=== PATIENT | male | born 1985 | race Caucasian/White ===

== ENCOUNTER 2022-09-26 19:22 | Inpatient (IN) | payer BC ==
--- OUTSIDE RECORDS SUMMARY | 2022-09-26 19:26 | XMS REPORT | Continuity of Care Document ---
:1985 Author Organization [facility] t Address [address] [place] [address] [place] [id number] Care Team Providers Name Role Phone Pcp, Patient Does Not Have A Primary Care Physician [id number] Connie Juarez MD Attending Clinician CONNIE JUAREZ Attending Clinician Unavailable Dimple Garces MD Attending Clinician Doctor Unassigned, [place] Attending Clinician Unavailable To Pereyra MD Attending Clinician Dimple Garces MD Admitting Clinician DIMPLE GARCES Admitting Clinician Unavailable Payers Payer Name Policy Type Policy Number Effective Date Expiration Date S ource Problems Condition Condition Condition Status Onset Resolution Last Treating Co mments Source Name Details Category Date Date Treatment Clinician Date No known No known Disease Unive rs active active ity of problems problems [facility] Allergies, Adverse Reactions, Alerts Allergy Allergy Status Severity Reaction(s) Onset Inactive Treating Comm ents Source Name Type Date Date Clinician NO KNOWN Drug Active Univers ALLERGIE Class ity of S [facility] Social History Social Habit Start Date Stop Date Quantity Comments Source Exposure to Not sure [facility] SARS-CoV-2 (event) [facility] Tobacco use and 2021-04-09 2021-04-09 Never used [facility] exposure 00:00:00 00:00:00 [facility] Sex Ass[birth year] At [birth year] [facility] 00:00:00 00:00:00 [facility] [place] Smoking Status Start Date Stop Date Source Never smoker [facility] Medications Ordered Filled Start Stop Current Ordering Indication Dosage Frequency Signature Comments Components Source Medication Medication Date Date Medication? Clinician (SIG) Name Name No known 2020-07 No Univers medications 0-22 ity of 14:01: [address] No known 2020-07 No Univers medications 0-22 ity of 14:01: [address] Vital Signs Vital Name Observation Time Observation Value Comments Source Body height 2021-05-16 14:25:00 172.7 cm [facility] Body weight 2021-05-16 14:25:00 88.451 kg [facility] BMI 2021-05-16 14:25:00 29.65 kg/m2 [facility] Procedures This patient has no known procedures. Encounters Start End Encounter Admission Attending Care Care Encounter Source Date/Time Date/Time Type Type Clinicians Facility Department ID 2021-05-16 2021-05-16 [facility] [id number] Univers 09:22:40 09:38:36 Visit Connie [place] [id number] it y of [place] [id number] James as Sarbjit?Blea [phone] Ar tami [address] Office [facility] 2021-05-16 2021-05-16 Outpatient [facility] [id number] Univers 09:15:00 09:15:00 CONNIE shahida [facility] 2021-05-16 2021-05-16 [facility] [id number] Univers 00:00:00 00:00:00 (Out) Connie [facility] [id number] it y of [place] [id number] James as Sarbjit?Blea [phone] Ar tami [address] Office Building 2021-04-28 2021-04-28 [facility] [id number] Univers 13:50:40 14:28:16 Visit Connie De La Rosa [facility] [id number] it y of [place] [id number] James as Sarbjit?Blea [phone] [address] Office Building 2021-04-28 2021-04-28 [facility] [id number] Univers 13:45:00 13:45:00 CONNIE doty [facility] 2021-04-25 2021-04-25 Letter VANESSA Garces [id number] Univers 00:00:00 00:00:00 (Out) Dimple Velez [facility] [id number] ity of [facility] [id number] [phone] [facility] [address] 2021-04-21 2021-04-21 [facility] [id number] Univers 13:54:47 15:38:42 Visit Connie De La Rosa [facility] [id number] it y of [place] [id number] James as Sarbjit?Blea [phone] Ar nitasaarh [address] Office [facility] 2021-04-21 2021-04-21 [facility] [id number] Univers 13:45:00 13:45:00 CONNIELASHA doty [facility] 2021-04-15 2021-04-15 Orders Doctor LEIA [id number] Univers 00:00:00 00:00:00 Only Unassigned, [place] [id number] ity of [place] [facility] [id number] James as [phone] [facility] [address] 2021-04-09 2021-04-09 [facility] [id number] Univers 13:10:05 13:33:24 Visit Connie De La Rosa [facility] [id number] it y of [place] [id number] James as Sarbjit?Blea [phone] Ar tami edge [address] [place] [address] Office [facility] 2021-04-09 2021-04-09 Outpatient R [facility] [id number] Univers 13:15:00 13:15:00 CONNIE shahida [facility] 2021-04-05 2021-04-05 Emergency To Pereyra [facility] [id number] Univers 03:18:00 06:59:00 Dimple Garces [facility] [id number] ity of [place] [id number] [facility] [phone] [address] ([facility]) 2021-04-05 2021-04-05 Emergency To Pereyra [facility] [id number] Univers 03:18:00 06:59:00 [facility] [id number] ity of [place] [id number] [facility] [phone] [address] ([facility]) 2021-04-05 2021-04-05 Emergency X [facility] ERT [id number] Univers 03:18:00 03:18:00 ity of [facility] Results This patient has no known results.
[2022-09-26] MEDS ORDERED: ONDANSETRON 4 MG/2 ML VIAL IV PRN (19:32)
[2022-09-26 20:21] LABS: SARS-CoV-2 Antigen Rapid Res Negative (Negative)
--- NOTE | 2022-09-26 21:21 | P.HP ---
Certification for Inpatient Patient admitted to: Inpatient With expected LOS: >2 Midnights Patient will require the following post-hospital care: None Practitioner: I am a practitioner with admitting privileges, knowledge of patient current condition, hospital course, and medical plan of care. Services: Services provided to patient in accordance with Admission requirements found in Title 42 Section 412.3 of the Code of Federal Regulations Patient History Date of Service: 09/26/22 Reason for admission: Dental infection r/o osteomyelitis History of Present Illness: 37-year-old male with history of wisdom tooth extraction performed on 08/31/2022 with persistent pain in the right lower jaw and follow-up debridement on 09/23/2022 who has had pain and numbness of the right lower jaw for the past few days was referred here to the hospital for direct admission by his oromaxillofacial surgeon for admission and IV antibiotics/ID evaluation for possible osteomyelitis. Patient has been on 3 courses of antibiotics since his wisdom teeth were extracted, most recently clindamycin for the last 4 days. Allergies morphine Allergy (Intermediate, Verified 10/19/13 02:51) Anaphylaxis Home Medications: Azithromycin Tab [Zithromax*] 500 mg PO DAILY #5 tab 10/19/13 predniSONE [Deltasone] 10 mg PO DAILY #14 tab 10/19/13 - Past Medical/Surgical History -: none -: appendectomy Psychosocial/ Personal History: Patient lives at home with his family - Social History Smoking Status: Never smoker Alcohol use: Yes CD- Drugs: No Caffeine use: Yes Place of Residence: Home Review of Systems 10-point ROS is otherwise unremarkable ENT: Other (Dental pain, numbness right jaw) Physical Examination - Physical Exam General: Alert, In no apparent distress, Oriented x3 HEENT: Atraumatic, PERRLA, Mucous membr. moist/pink, Other (Swelling present of the right jaw), EOMI, Sclerae nonicteric Neck: Supple, 2+ carotid pulse no bruit, No LAD, Without JVD or thyroid abnormality Respiratory: Clear to auscultation bilaterally, Normal air movement Cardiovascular: Regular rate/rhythm, Normal S1 S2 Capillary refill: <2 Seconds Gastrointestinal: Normal bowel sounds, No tenderness Musculoskeletal: No tenderness Integumentary: No rashes Neurological: Normal speech, Normal strength at 5/5 x4 extr, Normal tone, Normal affect Assessment and Plan - Plan Assessment: Dental infection status post wisdom tooth extraction rule out osteomyelitis Plan: Dental infection status post wisdom tooth extraction rule out osteomyelitis Blood cultures obtained, continue antibioticsUnasyn. Infectious disease consult in place as well as patient's surgeon Dr. Quinn, pain medications ordered. Monitor CBC. DVT PPX: Lovenox Code status: Full Discharge Plan: Home Plan to discharge in: 72 Hours - Advance Directives Does patient have a Living Will: No Does patient have a Durable POA for Healthcare: No - Code Status/Comfort Care Code Status Assessed: Yes (Full code) Critical Care: No Time Spent Managing Pts Care (In Minutes): 50
[2022-09-26 21:36] LABS: Absolute Lymphocytes (CBC) 3.4 K/uL (0.7-4.9); Hematocrit 36.8 % (39.6-49.0); Lymphocytes % 44.2 % (15.3-44.8); MCV 90.5 fL (80-100); MPV 7.1 fL (7.6-11.3); RBC Red Blood Cell Count 4.06 M/uL (4.33-5.43)
[2022-09-26] MEDS: HYDROCODONE/APAP 7.5/325 MG TAB PO PRN (21:54)
[2022-09-26] MEDS: AMPICILLIN/SULBACT 3 GM in NA CHLORIDE 0.9% 100 ML IVPB SCH (21:54)
[2022-09-26] MEDS: MELATONIN 5 MG TABLET PO PRN (21:55)
[2022-09-26] MEDS ORDERED: dexAMETHasone 10 MG/ML VIAL IV ONE (21:56)
[2022-09-26 22:07] VITALS: BMI 30.7
[2022-09-26] MEDS: HYDROMORPHONE HCL 0.5 MG/0.5 ML INJ IV PRN (22:55)
[2022-09-27] MEDS: HYDROMORPHONE HCL 0.5 MG/0.5 ML INJ IV PRN ×4 (03:33→19:48)
[2022-09-27] MEDS: AMPICILLIN/SULBACT 3 GM in NA CHLORIDE 0.9% 100 ML IVPB SCH ×4 (03:33→20:04)
[2022-09-27 03:42] LABS: Absolute Lymphocytes (CBC) 1.1 K/uL (0.7-4.9); Hematocrit 39.1 % (39.6-49.0); Lymphocytes % 11.3 % (15.3-44.8); MCV 91.1 fL (80-100); MPV 7.5 fL (7.6-11.3); RBC Red Blood Cell Count 4.29 M/uL (4.33-5.43)
[2022-09-27 03:58] LABS: BUN Blood Urea Nitrogen 16 mg/dL (7-18); Bicarbonate 31 mmol/L (21-32); Glomerular Filtration Rate 101 ml/min (=/>90); Glucose Level 187 mg/dL (74-106); Potassium 4.8 mmol/L (3.5-5.1); Sodium Level 135 mmol/L (136-145)
[2022-09-27 04:19] LABS: C-Reactive Protein < 2.90 mg/L (<3.00)
--- NOTE | 2022-09-27 07:11 | P.PN ---
Date of Service: 09/27/22 Subjective: aching pain slightly decreased - reports that it comes in waves moderate numbness right lower jaw no new symptoms, afebrile ROS: 10 point ROS as noted above, otherwise negative Physical Exam: GEN: Alert, oriented, NAD HEENT: Mucous membr. moist/pink, Swelling present of the right jaw, EOMI, Sclerae nonicteric CV: Regular rate and rhythm, no edema Pulm: Nonlabored respirations on room air ABD: Soft, nontender, nondistended Integumentary: No rashes Neuro: Normal speech, normal affect, decreased sensation to R jaw vitals reviewed Problem List: R jaw pain and numbness s/p tooth extraction concern for infection, possible osteomyelitis swelling, tenderness of R face/jaw, with numbness OMFS - Dr. Quinn consulted unclear etiology leading to inflammation/irritation of nerve concern for osteomyelitis vs fracture continue empiric antibiotic - unasyn, cover for anaerobes ID consulted spoke with radiology, discussed HPI and concern for fracture / osteomyelitis / infection / other etiology, recommended CT maxillofacial with contrast - ordered Continue pain meds as needed VTE: Lovenox Code: Full Dispo: ~48-72 hours
[2022-09-27] MEDS ORDERED: ENOXAPARIN 40 MG/0.4 ML SQ SCH (09:00)
[2022-09-27] MEDS ORDERED: dexAMETHasone 10 MG/ML VIAL IV ONE (10:00)
[2022-09-27] MEDS: HYDROCODONE/APAP 7.5/325 MG TAB PO PRN ×2 (11:29→18:11)
--- NOTE | 2022-09-27 15:37 | RAD REPORT ---
EXAM DESCRIPTION: CTMaxillofacial W/Cont09/27/2022 3:17 pm CLINICAL HISTORY: Right facial pain and swelling COMPARISON: None. TECHNIQUE: Computed axial tomography of the face obtained with coronal and sagittal reconstruction. 95 cc Isovue-[address] scans are performed using dose optimization technique as appropriate and may include automated exposure control or mA/KV adjustment according to patient size. FINDINGS: Bilateral molar extractions. 6 millimeter collection of air is present within the residual socket of the right molar. A fluid-filled abscess is not seen. No bony destruction noted The parotid and submandibular glands appear unremarkable. The parapharyngeal fat is clear. Fluid within the sinuses is not noted. Mucus retention cysts right maxillary sinus IMPRESSION: 6 millimeter collection of air is present within the residual socket of the right molar. This may be a normal postsurgical change. An air producing infection can have this appearance but pr obably is less likely. This should be correlated with physical inspection. No fluid-filled abscess. No evidence of osteomyelitis. .
--- NOTE | 2022-09-27 15:50 | PN ---
Date of Progress Note: 09/27/2022 Subjective: The patient states that his symptoms are the same or slightly better than the previous d ay. He reports that he had some discomfort overnight that was relieved with the IV. DICTATION ENDS HERE LAWRENCE/BELLA Voice ID: [id number] Report ID: [id number]
--- NOTE | 2022-09-27 16:35 | CON ---
Date of Consultation: 09/26/2022 Chief Complaint: My jaw hurts when I am chewing food and my teeth feel numb. History Of Present Illness: The patient is a 37-year-old male, who began experiencing discomfort nahomi und teeth #17 and 32 in June 2022. He was examined by his general dentist, Dr. Baca and presc ribed a course of antibiotic for the pain. He was referred to my office for evaluation to extract th ird molars. I initially examined the patient on 08/19/2022. The patient was not having any symptoms on the day of that exam. He was found to have impacted maxillary and mandibular third molars, teeth #1, 16, 17 and 32,. Only tooth #17 was partially erupted and showed signs of chronic pericoronitis. Panoramic radiograph and cone-beam CT scan was obtained on the day of consultation. There was no r adiographic pathology associated with the maxillary third molars. Both of the impacted lower third m olars were closely associated with the inferior alveolar nerve canal. The risks and benefits of extr acting the third molars were discussed. The patient elected to retain teeth #1 and #16. On August 31, 2022, teeth #17 and 32 were extracted with the patient under IV sedation. The procedure was not remarkable for any complication. On September 17, 2022, my assistance seen the patient for routine fo llowup. The patient reported that he had been having increasing pain on the right side of his jaw ov er the past several days and had an intended to call for evaluation. The patient was scheduled for a n exam on 09/18/2022. I examined the patient on September 18, 2022. He did not have any significant intra or extraoral edema. He had no trismus. He did report some discomfort on maximal opening of hi s mouth. Examination of both extraction sites showed normal-appearing mucosa around the margins of t he areas; however, a small raised area of granulation tissue was seen arising from the central part o f the #30 tooth extraction site. A cone-beam CT scan was obtained. The scan showed the #30 tooth ex traction site as expected. There was 1 small gas bubble in the superior part of the extraction site. There was a sharp edge of buccal cortical bone on the posterior margin of the extraction site. No fracture was seen and no lytic changes of the surrounding bone were noted. The soft tissue profiles that were visible showed no lymphadenopathy or sign of abscess. I prescribed doxycycline 100 mg 1 ta blet b.i.d. and rescheduled the patient for followup in 1 week. The patient was examined again on . He was complaining of the same pain with increasing pain, difficulty chewing because of th e pain. The clinical examination was unchanged and a small area of granulation tissue was still pres ent. I recommended surgical debridement of the #32 extraction sites. On September 23, 2022, the patient was sedated with IV sedation and the #32 extraction site was explored surgically. No purulent exudat e was noted. No necrotic bone was noted. The socket was curetted and friable granulation tissue was removed. No cultures or pathological specimen were submitted. Bleeding bone was encountered at the base of the extraction site and the GABY was not visualized. The patient was prescribed clindamycin 150 mg take 1 tablet every 6 hours. He was rescheduled for followup in 5 days. On September 25, 2022, 2 days after debridement of the site, the patient called the after hours number and complained that he was having some increasing pain, continued difficulty chewing and new onset of diminished sensation i n the posterior teeth in the right mandibular quadrant. I made the decision to increase the dose of clindamycin to 300 mg every 8 hours. The patient was scheduled for re-evaluation on the following Mo . On 09/26/2022, the patient's called and stated he was having severe pain during the night and that the numbness that he was experiencing was increasing. Based on the increasing symptoms and the progressive neurosensory impairment, the decision was made to have the patient admitted to the [facility] for IV antibiotic treatment and further radiographic studies. Past Medical History: Unremarkable. Past Surgical History: Extraction of teeth #17 and 32 with IV sedation on 08/31/2022, debridement of the tooth #32 extraction site under IV sedation on 09/23/2022. Social History: The patient does not smoke or use alcohol. Allergies: THE PATIENT REPORTS AN ALLERGY TO MORPHINE. Physical Examination: Vital signs on admission were temperature 97.6 Fahrenheit, pulse is 57, blood pressure 125/83, oxygen saturation 95% on room air, respiratory rate is 16. Laboratory Values: Initial laboratory values were obtained. The patient's white blood cell count wa s 7.6, hematocrit 36.8. The differential was normal except for MPV of 7.1. His chemistry values wer e normal. His COVID test negative. Assessment: The patient is a 37-year-old, well nourished, well developed, white male, in no acute di stress. The patient has no appreciable extraoral edema or erythema. The patient has normal range of the opening of the mandible, but complains of discomfort from the angle of the mandible to the right temporal mandibular joint upon maximal opening. The angle of his mandible and vasculature in the ar ea is tender to palpation, both extraorally and intraorally. The #32 extraction site has a fairly la rge mucosal defect as expected after the debridement that occurred on 09/23/2022. There was no eryth hardeep in the tissues. Palpation in the right mandibular vestibule yields no purulent exudate or small amount of debris in the wound. The area is very tender to palpation. The floor of the mouth is soft . The patient does not report any dysphagia. The patient can occlude his teeth without pain and his occlusion appears to be intact. There was no deviation of the mandible upon opening. The patient r eports very mild sensory impairment through distribution of the inferior alveolar nerve anterior to t he extraction sites and the distribution of the mental nerve on the right side. There is no mass in the right side of the neck or lymphadenopathy that is palpable. Differential Diagnosis: 1.Localized non-suppurative osteomyelitis of the right mandibular body. 2.Possible occult fracture of the right mandibular angle or body. 3.Neurapraxia of the right inferior alveolar nerve resulting in sensory impairment and neuralgia. Recommendations: Continue IV Unasyn. Administer a single dose of Decadron 10 mg IV. Add C-reactive protein and erythrocyte sedimentation rate to morning labs. Infectious disease consultation and rad iographic study either CT scan or MRI. RCF/MODL Voice ID: [id number] Report ID: [id number]
--- NOTE | 2022-09-27 16:44 | PN ---
Date of Progress Note: 09/27/2022 Subjective: The patient states that he is doing slightly better than he was doing the day before, zheng ving some discomfort overnight that was relieved with IV analgesics. He continues to complain of dis comfort that is radiating to the right temporomandibular joint area when chewing food. He reports th at the neurosensory impairment in the distribution of the right inferior alveolar nerve and mental ne rve is the same or perhaps slightly diminished from yesterday. Objective: Vital Signs: Temperature 96.9 Fahrenheit, pulse 57, respiratory rate 16, blood pressure 142/84, oxygen saturation 99% on room air. Vital signs were taken around 8 a.m. General: I examined the patient around 9:30 a.m. He had eaten breakfast. He was in no acute distre ss. The patient had no change in his physical exam. HEENT: There was no extraoral swelling. He has normal range of opening the mandible and is teeth ar e normally. Examination of the wound shows an open defect into the #30 tooth extraction s ite, palpation along the buccal margin wound produces tenderness. There was no pus or exudate expres sed. There was no lymphadenopathy in the submandibular area. The floor of mouth is soft. He does n ot report dysphagia. The patient cannot detect light touch along the right side of the lip and chin. He reports very minor sensory impairment. Laboratory Values: White blood cell count is 9.7, hematocrit 39.4. There was an increase in neutrop hils widely from administration of Decadron. C-reactive protein is less than 2.9. Chemistry showed increased glucose again likely from administration of Decadron. Assessment: The patient's condition is stable. It is still unclear if the patient is having osteomy elitis of the right side of the mandible, neuralgia, or occult fracture. White blood cell count and other laboratory values are not indicative of an acute infection. Plan: I have discussed the case with Dr. Brink. He will confer with the radiologist to determine wh ich radiographic study is best indicated at this time if the patient will be having an MRI that will be performed tomorrow. Infectious Disease consult is pending. For now, we will continue IV Unasyn. I will administer another dose of Decadron and re-evaluate the patient tomorrow. RCF/MODL Voice ID: [id number] Report ID: [id number]
[2022-09-27] MEDS: MELATONIN 5 MG TABLET PO PRN (19:53)
[2022-09-28] MEDS: AMPICILLIN/SULBACT 3 GM in NA CHLORIDE 0.9% 100 ML IVPB SCH ×4 (03:00→20:00)
[2022-09-28] MEDS: HYDROMORPHONE HCL 0.5 MG/0.5 ML INJ IV PRN ×4 (03:14→20:05)
[2022-09-28 03:41] LABS: Absolute Lymphocytes (CBC) 2.5 K/uL (0.7-4.9); Hematocrit 37.3 % (39.6-49.0); Lymphocytes % 11.7 % (15.3-44.8); MCV 90.5 fL (80-100); MPV 7.6 fL (7.6-11.3); RBC Red Blood Cell Count 4.12 M/uL (4.33-5.43)
[2022-09-28 03:51] LABS: Potassium 3.9 mmol/L (3.5-5.1)
[2022-09-28 04:10] LABS: Blood Morphology Comment NOT SEEN (NOT SEEN); Platelet Estimate ADEQ
--- NOTE | 2022-09-28 06:58 | P.PN ---
Date of Service: 09/28/22 Subjective: minimal aching pain, worsening with movement of the jaw no pain overnight / when not moving jaw -> worsens with eating and talking numbness of right lower jaw decreased (feels "15% numb" compared to left) no new symptoms, afebrile ROS: 10 point ROS as noted above, otherwise negative Physical Exam: GEN: Alert, oriented, NAD HEENT: Mucous membr. moist/pink, Swelling present of the right jaw, EOMI, Sclerae nonicteric CV: Regular rate and rhythm, no edema Pulm: Nonlabored respirations on room air ABD: Soft, nontender, nondistended Integumentary: No rashes Neuro: Normal speech, normal affect, decreased sensation to R jaw vitals reviewed Problem List: R jaw pain and numbness s/p tooth extraction concern for infection, possible osteomyelitis swelling, tenderness of R face/jaw, with numbness OMFS - Dr. Quinn consulted unclear etiology leading to inflammation/irritation of nerve concern for osteomyelitis CT negative for fracture MRI odered 09/28, r/o osteo pain begins at TMJ, radiates down with further use of jaw continue empiric antibiotic - unasyn, cover for anaerobes ID consulted - montor for signs of infection to rule out osteomyelitis spoke with radiology, discussed HPI and concern for fracture / osteomyelitis / infection / other etiology, CT maxillofacial with contrast - showed no abnormal post surgical findings - 6mm collection of air around right molar no evidence of osteomyelitis, no abscess MRI ordered as above Continue pain meds as needed Started TCA for nerve pain VTE: Lovenox Code: Full Dispo: ~48-72 hours
[2022-09-28] MEDS ORDERED: AMITRIPTYLINE 10 MG TAB PO ONE (07:30)
[2022-09-28] MEDS: HYDROCODONE/APAP 7.5/325 MG TAB PO PRN (09:23)
--- NOTE | 2022-09-28 09:36 | P.CNS ---
Date of Consult: 09/28/22 Chief Complaint: Dental infection r/o osteomyelitis History of Present Illness: 37-year-old male with history of wisdom tooth extraction performed on 08/31/2022 with persistent pain in the right lower jaw and follow-up debridement on 09/23/2022 who has had pain and numbness of the right lower jaw for the past few days was referred here to the hospital for direct admission by his oromaxillofacial surgeon for admission and IV antibiotics/ID evaluation for possible osteomyelitis. Patient has been on 3 courses of antibiotics since his wisdom teeth were extracted, most recently clindamycin for the last 4 days ID has been consulted for further IV antibiotics recommendations and management for possible osteomyelitis of the right jaw Allergies morphine Allergy (Intermediate, Verified 10/19/13 02:51) Anaphylaxis Home Medications: NK [No Home Meds] 09/28/22 - Past Medical/Surgical History Diabetic: No -: none -: appendectomy Psychosocial/ Personal History: Patient lives at home with his family - Social History Smoking Status: Current some day smoker Alcohol use: Yes CD- Drugs: No Caffeine use: Yes Place of Residence: Home Review of Systems 10-point ROS is otherwise unremarkable ENT: Other (numbness of right lower jaw), As per HPI Physical Examination Temp Pulse Resp BP Pulse Ox 97.6 F 64 16 139/95 H 100 09/28/22 08:00 09/28/22 08:00 09/28/22 08:00 09/28/22 08:00 09/28/22 08:00 General: Alert, In no apparent distress, Oriented x3 Respiratory: Clear to auscultation bilaterally Cardiovascular: Normal pulses, Normal S1 S2 Gastrointestinal: Normal bowel sounds Musculoskeletal: No swelling, No tenderness Integumentary: No rashes, No breakdown Neurological: Normal gait, Normal speech, Normal tone, Sensation intact, Normal affect Laboratory Data (last 24 hrs) 09/28/22 03:11: Sodium 137, Potassium 3.9 D, BUN 20 H, Creatinine 0.88, Glucose 156 H 09/28/22 03:11: WBC 21.10 H*, Hgb 12.8 L, Hct 37.3 L, Plt Count 256 current medications Hydrocodone Bitart/Acetaminophen (Hydrocodone/Apap 7.5/325 Mg Tab) 1 tab PO Q6H PRN PRN Reason: Pain scale 5-7 (Moderate) Last Admin: 09/28/22 09:23 Dose: 1 tab Hydromorphone HCl (Hydromorphone Hcl 0.5 Mg/0.5 Ml Inj) 0.5 mg IV Q4H PRN PRN Reason: Pain scale 8-10 (Severe) Last Admin: 09/28/22 07:51 Dose: 0.5 mg Ampicillin Sodium/Sulbactam (Sodium 3 gm/ Sodium Chloride) 100 mls @ 200 mls/hr IVPB Q6HR@0300,0900,1500,2100 [facility]; Protocol Last Admin: 09/28/22 07:51 Dose: 100 mls Melatonin (Melatonin 5 Mg Tablet) 5 mg PO BEDTIME PRN PRN PRN Reason: INSOMNIA Last Admin: 09/27/22 19:53 Dose: 5 mg Ondansetron HCl (Ondansetron 4 Mg/2 Ml Vial) 4 mg IV Q6HP PRN PRN Reason: NAUSEA / VOMITING Last Admin: 09/26/22 22:56 Dose: 4 mg Sodium Chloride (Flush Normal Saline 10 Ml) 10 ml IV BID NALLELY Last Admin: 09/28/22 07:51 Dose: 10 ml Microbiology 09/26/22 21:26 Blood - Blood Aerobic Blood Culture - Preliminary No growth in 24 hours. 09/26/22 21:26 Blood - Blood Anaerobic Blood Culture - Preliminary No growth in 24 hours. 09/26/22 21:21 Blood - Blood Aerobic Blood Culture - Preliminary No growth in 24 hours. 09/26/22 21:21 Blood - Blood Anaerobic Blood Culture - Preliminary No growth in 24 hours. Imagings Data: CT Maxillofacial W/Cont09/27/2022 FINDINGS: Bilateral molar extractions. 6 millimeter collection of air is present within the residual socket of the right molar. A fluid-filled abscess is not seen. No bony destruction noted The parotid and submandibular glands appear unremarkable. The parapharyngeal fat is clear. Fluid within the sinuses is not noted. Mucus retention cysts right maxillary sinus IMPRESSION: 6 millimeter collection of air is present within the residual socket of the right molar. This may be a normal postsurgical change. An air producing infection can have this appearance but probably is less likely. This should be correlated with physical inspection. No fluid-filled abscess. No evidence of osteomyelitis - Problems (1) Possible osteomyelitis of rt Jaw Plan: S/P wisdom tooth extraction Cultures: - 09/26 BC: Negative Antibiotics: - Current on IV Ampicillin / Sulbactam (09/26- ) Recommendations: - MRI recommended to r/o osteomyelitis and infection - Continue IV Ampicillin / Sulbactam for now Conclusions/Impression: - Dental infection status post wisdom tooth extraction rule out osteomyelitis: Continue IV antibiotics ID will monitor the patient closely for signs of infection with fever and WBC trends Case has been discussed with Dr. Lanza N Thank you Dr. Brink for consultation
--- NOTE | 2022-09-28 17:41 | RAD REPORT ---
EXAM DESCRIPTION: MRI - Orbit Face W/Wo Cont - 09/28/2022 4:43 pm CLINICAL HISTORY: Mandible pain and swelling COMPARISON: September 27, 2022 CT TECHNIQUE: Axial, coronal and sagittal magnetic resonance imaging of the mandible obtained. 19 cc Mu ltiHance administered intravenously FINDINGS: Right molar has been resected. The lateral wall of the mandible has been resected at this level. T1 weighted sequences demonstrate diminished signal within the adjacent inferior aspect of the right mandible. This area enhances and measures approximately 1 centimeter and is suspicious for ost eomyelitis. A 2 centimeter area of increased signal on T2 weighted sequences lies within the tissues superficial to the resected molar. Left molar has been resected. No complication noted. IMPRESSION: 1 centimeter area of abnormal signal inferior to the resected molar right mandible suspi cious for osteomyelitis. 2 centimeter area of increased signal within the superficial tissues adjacent to the resected molar l ikely infection. It does not have the appearance of a drainable abscess however.
[2022-09-28] MEDS: IBUPROFEN 400 MG TAB PO SCH (18:01)
[2022-09-28] MEDS ORDERED: AMITRIPTYLINE 10 MG TAB PO SCH (21:00)
--- NOTE | 2022-09-28 21:56 | PN ---
Date of Progress Note: 09/28/2022 Subjective: Overall, the patient states that he is doing well. He continues to have this discomfort after chewing food and talking. He points to his right temporomandibular joint area when describing the pain. He states that the numbness in his lip, chin, and teeth is unchanged. He has had no trou ble taking p.o. intake and reports no difficulty swallowing. Objective: The patient was examined at 01:15 p.m. on 09/28/2022. Vital signs: Recorded around 0800 were temperature is 97.6 Fahrenheit, pulse 64, respiratory rate 16, blood pressure 139/95, and oxyge n saturation 100% on room air. Significant Laboratory Values: White blood cell count of 21,000. The patient has normal range of op ening in the mandible. There is no deviation. Inspection of the intraoral wounds shows mucosal defe ct at the #32 extraction site as expected. There is some faint ecchymosis that has appeared in the m ucosa overlying the ascending ramus of the mandible. The area is still moderately tender to palpatio n. There is no pus or exudate expressed from the wound. There is some food debris in the wound. I reviewed the CT scan that was obtained yesterday. It showed no sign of osteolytic changes or fractur e in the right side of the mandible. There was some air within the extraction site. This appeared t o be within normal limits for the space of the extraction site. Assessment: The patient is stable clinically. There is no increasing swelling, discomfort, or pares thesias. DICTATION ENDS HERE LAWRENCE/BELLA Voice ID: [id number] Report ID: [id number]
--- NOTE | 2022-09-28 22:23 | PN ---
Continuation: Assessment: The patient has been afebrile. The increased white blood cell count is concerning. Thi s could be secondary to administration of Decadron. Repeat white blood cell count is indicated. The etiology of the patient's pain is unclear. The patient describes pain in the right temporomandibula r joint area after talking and chewing. This may indicate an acute temporomandibular joint dysfuncti on. This may be a separate problem from the symptoms that are rising from the tooth #32 extraction s ite. Plan: Continue IV Unasyn unless directed otherwise by Infectious Disease. An MRI is pending. Await ing Infectious Disease recommendations. I will follow up with the patient tomorrow. LAWRENCE/BELLA Voice ID: [id number] Report ID: [id number]
[2022-09-29] MEDS: IBUPROFEN 400 MG TAB PO SCH ×3 (00:20→13:24)
[2022-09-29 03:33] LABS: Absolute Lymphocytes (CBC) 4.2 K/uL (0.7-4.9); Hematocrit 36.3 % (39.6-49.0); Lymphocytes % 35.1 % (15.3-44.8); MCV 91.4 fL (80-100); MPV 7.5 fL (7.6-11.3); RBC Red Blood Cell Count 3.97 M/uL (4.33-5.43)
[2022-09-29] MEDS: AMPICILLIN/SULBACT 3 GM in NA CHLORIDE 0.9% 100 ML IVPB SCH ×3 (03:33→15:00)
[2022-09-29 03:57] LABS: Potassium 4.2 mmol/L (3.5-5.1)
[2022-09-29] MEDS: HYDROCODONE/APAP 7.5/325 MG TAB PO PRN (08:12)
--- NOTE | 2022-09-29 08:31 | P.PN ---
Subjective Date of Service: 09/29/22 Chief Complaint: Dental infection r/o osteomyelitis Patient lying in bed with no major event upon examination Physical Examination - Vital Signs Temperature: 97.4 F Blood Pressure: 138/71 Pulse: 56 Respirations: 19 Pulse Ox (%): 97 - Physical Exam General: Alert, In no apparent distress Respiratory: Clear to auscultation bilaterally Cardiovascular: No edema, Normal S1 S2 Gastrointestinal: Normal bowel sounds Musculoskeletal: No swelling, No tenderness Integumentary: No rashes, No breakdown Neurological: Normal gait, Normal speech, Normal tone, Sensation intact, Normal affect - Studies Laboratory Data (last 24 hrs) 09/29/22 03:10: Sodium 139, Potassium 4.2, BUN 24 H, Creatinine 1.09, Glucose 106 09/29/22 03:10: WBC 11.90 H, Hgb 12.2 L, Hct 36.3 L, Plt Count 220 active medications Hydrocodone Bitart/Acetaminophen (Hydrocodone/Apap 7.5/325 Mg Tab) 1 tab PO Q6H PRN PRN Reason: Pain scale 5-7 (Moderate) Last Admin: 09/29/22 08:12 Dose: 1 tab Amitriptyline HCl (Amitriptyline 10 Mg Tab) 10 mg PO BEDTIME NALLELY Last Admin: 09/28/22 19:59 Dose: 10 mg Hydromorphone HCl (Hydromorphone Hcl 0.5 Mg/0.5 Ml Inj) 0.5 mg IV Q4H PRN PRN Reason: Pain scale 8-10 (Severe) Last Admin: 09/28/22 20:05 Dose: 0.5 mg Ampicillin Sodium/Sulbactam (Sodium 3 gm/ Sodium Chloride) 100 mls @ 200 mls/hr IVPB Q6HR@0300,0900,1500,2100 [facility]; Protocol Last Admin: 09/29/22 08:12 Dose: 100 mls Ibuprofen (Ibuprofen 400 Mg Tab) 400 mg PO Q6HR [facility] Last Admin: 09/29/22 05:46 Dose: 400 mg Melatonin (Melatonin 5 Mg Tablet) 5 mg PO BEDTIME PRN PRN PRN Reason: INSOMNIA Last Admin: 09/27/22 19:53 Dose: 5 mg Ondansetron HCl (Ondansetron 4 Mg/2 Ml Vial) 4 mg IV Q6HP PRN PRN Reason: NAUSEA / VOMITING Last Admin: 09/26/22 22:56 Dose: 4 mg Sodium Chloride (Flush Normal Saline 10 Ml) 10 ml IV BID NALLELY Last Admin: 09/29/22 08:13 Dose: 10 ml Imagings Data: MRI - Orbit Face W/Wo Cont - 09/28/2022 FINDINGS: Right molar has been resected. The lateral wall of the mandible has been resected at this level. T1 weighted sequences demonstrate diminished signal within the adjacent inferior aspect of the right mandible. This area enhances and measures approximately 1 centimeter and is suspicious for osteomyelitis. A 2 centimeter area of increased signal on T2 weighted sequences lies within the tissues superficial to the resected molar. Left molar has been resected. No complication noted. IMPRESSION: 1 centimeter area of abnormal signal inferior to the resected molar right mandible suspicious for osteomyelitis 2 centimeter area of increased signal within the superficial tissues adjacent to the resected molar likely infection. It does not have the appearance of a drainable abscess however Assessment And Plan - Current Problems (Diagnosis) (1) Possible osteomyelitis of rt Jaw Plan: S/P wisdom tooth extraction 09/28 MRI: 1 centimeter area of abnormal signal inferior to the resected molar right mandible suspicious for osteomyelitis 2 centimeter area of increased signal within the superficial tissues adjacent to the resected molar likely infection. It does not have the appearance of a drainable abscess however Cultures: - 09/26 BC: Negative Antibiotics: - Current on IV Ampicillin/Sulbactam (09/26- ) Recommendations: - Continue IV Ampicillin/Sulbactam for total of 6 weeks duration - Plan - Dental infection status post wisdom tooth extraction and osteomyelitis: Continue IV antibiotics for total of 6 weeks duration ID will monitor the patient closely for signs of infection with fever and WBC trends Case has been discussed with Dr. Lanza, N
[2022-09-29] MEDS: HYDROMORPHONE HCL 0.5 MG/0.5 ML INJ IV PRN (13:26)
--- NOTE | 2022-09-29 15:02 | P.PN ---
Subjective Date of Service: 09/29/22 Chief Complaint: Dental infection r/o osteomyelitis Patient has no new complaint today. He reports intermittent pain in the right jaw. No recorded fever. Physical Examination - Vital Signs Temperature: 97.3 F Blood Pressure: 137/88 Pulse: 63 Respirations: 18 Pulse Ox (%): 96 - Studies Laboratory Data (last 24 hrs) 09/29/22 03:10: Sodium 139, Potassium 4.2, BUN 24 H, Creatinine 1.09, Glucose 106 09/29/22 03:10: WBC 11.90 H, Hgb 12.2 L, Hct 36.3 L, Plt Count 220 Assessment And Plan - Plan Physical Exam: GEN: Alert, oriented, NAD HEENT: Mucous membr. moist/pink, mild swelling of the right jaw, EOMI, Sclerae nonicteric CV: Regular rate and rhythm, no edema Pulm: Nonlabored respirations on room air ABD: Soft, nontender, nondistended Integumentary: No rashes Neuro: Normal speech, normal affect, decreased sensation to R jaw vitals reviewed Diagnosis R jaw pain and numbness s/p tooth extraction concern for infection, possible osteomyelitis swelling, tenderness of R face/jaw, with numbness OMFS - Dr. Quinn seen patient. concern for osteomyelitis according to MRI results. CT negative for fracture MRI odered 09/28, r/o osteo Continue empiric antibiotic - unasyn, cover for anaerobes ID consulted -recommended 6 weeks of IV antibiotics. PICC line requested. IV to decide antibiotic which will be convenient to be given as outpatient and also to ensure compliance. Once a day dosing IV antibiotics would be more appropriate for him Continue pain medications. VTE: Lovenox Code: Full
[2022-09-29 15:44] VITALS: BP 134/88; TEMP 97.2
--- NOTE | 2022-09-29 16:42 | P.DS ---
Admission Date: 09/26/22 Discharge Date: 09/29/22 Disposition: ROUTINE DISCHARGE Discharge Condition: FAIR Reason for Admission: Dental infection r/o osteomyelitis Brief History of Present Illness: 37-year-old male with history of wisdom tooth extraction performed on 08/31/2022 presented with persistent pain in the right lower jaw and follow-up debridement on 09/23/2022 who had pain and numbness of the right lower jaw for a few days was referred here to the hospital for direct admission by his oromaxillofacial surgeon for admission and IV antibiotics/ID evaluation for possible osteomyelitis. Patient completed several days of antibiotics after his wisdom teeth were extraction. Hospital Course: Diagnosis R jaw pain and numbness s/p tooth extraction osteomyelitis of mandible Hospital course Patient admitted to the medical floor. OMFS - Dr. Quinn saw patient. There was concern for osteomyelitis according to MRI results. CT negative for fracture Patient treated with IV Unasyn ID consulted who recommended 6 weeks of antibiotics. ID recommended 6 weeks of oral Augmentin. Patient symptoms have improved and he is deemed stable for discharge.. Dr. Quinn is arranging follow-up in the office after discharge. Vital Signs/Physical Exam: Temp Pulse Resp BP Pulse Ox 97.2 F 56 16 134/88 95 09/29/22 15:43 09/29/22 15:43 09/29/22 15:43 09/29/22 15:43 09/29/22 15:43 General: Alert, In no apparent distress, Oriented x3 HEENT: Mucous membr. moist/pink Neck: JVD not distended Respiratory: Clear to auscultation bilaterally, Normal air movement Cardiovascular: Regular rate/rhythm, Normal S1 S2, No murmurs Capillary refill: <2 Seconds Gastrointestinal: Normal bowel sounds, Soft and benign, Non-distended Musculoskeletal: No swelling Integumentary: No rashes, No cyanosis Neurological: Normal strength at 5/5 x4 extr Laboratory Data at Discharge: WBC 11.90 K/uL (4.3-10.9) H 09/29/22 03:10 Hgb 12.2 g/dL (13.6-17.9) L 09/29/22 03:10 Hct 36.3 % (39.6-49.0) L 09/29/22 03:10 Plt Count 220 K/uL (152-406) 09/29/22 03:10 Sodium 139 mmol/L (136-145) 09/29/22 03:10 Potassium 4.2 mmol/L (3.5-5.1) 09/29/22 03:10 BUN 24 mg/dL (7-18) H 09/29/22 03:10 Creatinine 1.09 mg/dL (0.70-1.30) 09/29/22 03:10 Glucose 106 mg/dL (74-106) 09/29/22 03:10 Home Medications: Amox/Clavulanate [Augmentin 875-125 Tab*] 875 mg PO BID #84 tab 09/29/22 Hydrocodone 7.5/APAP 325 [Penrose 7.5/325 mg*] 1 tab PO Q6H PRN #15 tab 09/29/22 New Medications: Amox/Clavulanate [Augmentin 875-125 Tab*] 875 mg PO BID #84 tab Hydrocodone 7.5/APAP 325 [Penrose 7.5/325 mg*] 1 tab PO Q6H PRN #15 tab PRN Reason: Pain Scale 5-7 (Moderate) Diet: AHA Activity: Ad anay Followup: Kenneth Quinn DDS, MD [ACTIVE - CAN ADMIT] - 1-2 Weeks Time spent managing pt's care (in minutes): 34
[2022-09-29] MEDS ORDERED: MUPIROCIN 2% OINT 22GM TUBE TOP SCH ×2 (21:00)
[2022-09-29] MEDS ORDERED: AMOX/K CLAV 875 MG TAB PO SCH (21:00)
--- NOTE | 2022-09-30 21:17 | PN ---
Date of Progress Note: 09/29/2022 Subjective: The patient states that he is feeling a little bit better today. He has the same amount of numbness in his right lip and chin. He has a little bit less discomfort than the day before. He does report the pain being exacerbated by chewing and drinking hot liquids. Objective: The exam was performed around 9 a.m. on 09/29/2022. Vital Signs: Temperature 97.9 Fahrenheit, pulse 60, respiratory rate 16, blood pressure 124/81, and oxygen saturation 99% on room air. HEENT: There is no extraoral edema. Intraoral exam shows the mucosal defect at the tooth #32 site, as expected. There is no new edema or erythema in the area of the wound. There is mild tenderness t o palpation along the ascending ramus of the mandible. The patient has normal range of motion withou t deviation. He reports mild neurosensory impairment along the distribution of the right inferior al veolar and lingual nerves. This is unchanged from yesterday's exam. Laboratory Data: Pertinent labs: The patient's white blood cell count is decreased to 11,900 from 2 1,000 yesterday. Radiographs: MRI showed possible osteomyelitis in the area of the tooth #32 extraction site inferior to the defect. No pus or abscess was seen. Assessment: The patient is clinically stable. There is very mild improvement in the patient's disco mfort. I discussed the findings from the MRI with the patient today. Plan: Recommendations from Infectious Disease consultation are pending. LAWRENCE/BELLA Voice ID: [id number] Report ID: [id number]
== END 2022-09-29 18:30 | disposition home or self-care (01) | DRG 159 ==
LOC: 4TH 19:22
PROVIDERS: ADMIT Hospitalist; ATTEND Internal Medicine
DX: M27.2 Inflammatory conditions of jaws (principal); Z88.5 Allergy status to narcotic agent; Z79.52 Long term (current) use of systemic steroids; Z90.49 Acquired absence of other specified parts of digestive tract; Z79.899 Other long term (current) drug therapy; Z20.822 Contact with and (suspected) exposure to COVID-19
CPT/HCPCS: 36415; 70487; 70543; 80048; 85025; 86140; 87040; 87811; A9577; J0295; J1100; J1170; J2405; Q9967